=== PATIENT | female | born 1985 | race Caucasian/White ===

== ENCOUNTER 2016-08-14 07:06 | Emergency (ER) | payer OTHER ==
[~2016-08-14] VITALS: Ht 167.6 cm; Wt 108.9 kg
[~2016-08-14 07:06] MED LIST: ALBU6.7H INH; GEMF600T PO; GLUCTES27 TOP; GLUCTES27 XX; LEVEMIR SQ; [UNRECOGNIZED DRUG - CODE] PO
[2016-08-14 07:16] VITALS: BP 156/101; PULSE 81; RESP 18; TEMP 98.1; O2SAT 99
--- NOTE | 2016-08-14 07:44 | PD ---
HPI Chief Complaint: Foreign Body Time Seen by Provider: 07:42 Travel History International Travel<30 days: No Contact w/Intl Traveler<30days: No Traveled to known affect area: No History of Present Illness HPI 30-year-old female presents with feeling a bug in her right ear. She poured and hydrogen peroxide and the movements stopped and she's not sure if she got it out as her ear is still irritating her. This occurred at 4:30 this morning. She denies other concurrent complaints. PFSH Past Medical History Asthma: Yes Depression: Yes High Cholesterol: Yes Diabetes: Yes (IDDM STATES NONCOMPLIANT WITH INSULIN) Patient Takes Glucophage: No Diminished Hearing: No Gastrointestinal Disorders: Yes (GASTROPARESIS) Hypertension: Yes Musculoskeletal: Yes (NEUROPATHY) Neurologic: Yes (RECURRENT DIZZINESS) Immunizations Current: Yes Migraines: Yes Tetanus Vaccination: > 5 Years Influenza Vaccination: No ?: Unknown LMP: "Few months ago" : 4 Para: 0 Miscarriage: 3 Past Surgical History Endocrine Surgery: Yes (LYMPH NODE REMOVED WHEN PT WAS INFANT) Tonsillectomy: Yes (2007) Social History Alcohol Use: No Tobacco Use: No Substance Use: No Allergies-Medications (Allergen,Severity, Reaction): Coded Allergies: Benadryl (Verified Allergy, Severe, Swelling, 08/14/16) Cipro (Verified Allergy, Severe, Rash, 08/14/16) Compazine (Verified Allergy, Severe, Swelling, 08/14/16) Keflex (Verified Allergy, Severe, Rash, 08/14/16) Latex (Verified Allergy, Severe, 08/14/16) Metoprolol (Verified Allergy, Severe, Swelling, 08/14/16) Penicillin (Verified Allergy, Severe, Hives, 08/14/16) Sulfa (Verified Allergy, Severe, TURNS RED ALL OVER, 08/14/16) Bactrim (Verified Adverse Reaction, Intermediate, 08/14/16) Reported Meds & Prescriptions Reported Meds & Active Scripts Active Gemfibrozil 600 Mg Tab 600 Mg PO BIDAC Take 30 minutes prior to breakfast and dinner. Levemir Inj (Insulin Detemir) 1,000 unit/ 10 ML Vial 135 Units SQ BIDAC 30 Days Do not mix with any other Insulin. Reported Proventil Hfa 6.7 GM Inh (Albuterol Sulfate) 90 Mcg/Act Aer 2 Puff INH Q6H PRN Review of Systems Except as stated in HPI: all other systems reviewed are Neg Physical Exam Narrative General: No apparent distress, well appearing ENT: mmm, external auditory canals are normal. Bilateral TM clear, no foreign body or lacerations noted Neck: Neck is supple, no meningeal signs, trachea is midline Cardiovascular: Regular rate and rhythm Lungs: No increased respiratory effort noted Neuro: Awake, motor and sensation grossly intact, normal speech Data Data Last Documented VS Vital Signs Date Time Temp Pulse Resp B/P Pulse Ox O2 Delivery O2 Flow Rate FiO2 08/14/16 07:16 98.1 81 18 156/101 99 Room Air MDM Medical Decision Making Medical Screen Exam Complete: Yes Emergency Medical Condition: Yes Medical Record Reviewed: Yes (past history confirm) Differential Diagnosis Laceration, foreign body, foreign body sensation Narrative Course Patient without foreign body or laceration. Advised Tylenol as needed for discomfort and to follow with primary. Patient happy with plan Diagnosis Primary Impression: Foreign body sensation in right ear canal Patient Instructions: General Instructions Additional Instructions: return as needed, tylenol as needed for pain, follow with primary Med/Other Pt SpecificInfo: No Change to Meds Disposition: 01 DISCHARGE HOME Condition: Stable Barbi Lebron MD Aug 14, 2016 07:44
[2016-10-15] MEDS ORDERED: [UNRECOGNIZED DRUG - CODE] (11:45)
[2016-10-15] MEDS ORDERED: LEVEMIR SQ ×2 (11:57→12:13)
[2016-10-15] MEDS ORDERED: insulin syringes TOPICAL (12:13)
[2016-12-03] MEDS ORDERED: NOVOLOGP2 SQ (12:06)
== END 2016-08-14 07:50 | disposition home or self-care (01) ==
LOC: PHED 07:06
DX: H93.8X1 Other specified disorders of right ear (principal)
CPT/HCPCS: 99282

== ENCOUNTER → 2016-11-27 | Outpatient (CLI) | payer OTHER ==
[~2016-11-27] MED LIST changes: -GLUCTES27 TOP; -GLUCTES27 XX; +NOVOLOGP2 SQ; +[UNRECOGNIZED DRUG - CODE]; -[UNRECOGNIZED DRUG - CODE] PO; +insulin syringes TOPICAL
[2016-11-27 13:04] LABS: AUTOMATED NEUTROPHIL # 3.8 TH/MM3 (1.8-7.7); BASOPHIL % 0.7 % (0.0-2.0); EOSINOPHIL # 0.2 TH/MM3 (0-0.4); EOSINOPHIL % 3.3 % (0.0-4.0); HEMATOCRIT 47.2 % (35.0-46.0); HEMO FLAGS DIFF FINAL; LYMPH % 33.9 % (9.0-44.0); LYMPHOCYTE # 2.3 TH/MM3 (1.0-4.8); MEAN CELL VOLUME 82.6 FL (80.0-100.0); MEAN CORPUSCULAR HEMOGLOBIN 26.9 PG (27.0-34.0); MEAN CORPUSCULAR HGB CONC 32.6 % (32.0-36.0); MONO % 6.6 % (0.0-8.0); NEUT % 55.5 % (16.0-70.0); PLATELET COUNT 306 TH/MM3 (150-450); RED BLOOD COUNT 5.72 MIL/MM3 (4.00-5.30); RED CELL DISTRIBUTION WIDTH 13.1 % (11.6-17.2); WHITE BLOOD COUNT 6.8 TH/MM3 (4.0-11.0)
[2016-11-27 13:27] LABS: ANION GAP 8 MEQ/L (5-15); AST (GOT) 55 U/L (15-37); BICARBONATE 25.8 MEQ/L (21.0-32.0); BLOOD UREA NITROGEN 13 MG/DL (7-18); CHLORIDE 101 MEQ/L (98-107); GLOMERULAR FILTRATION RATE 71 ML/MIN (>89); GLUCOSE,FASTING 244 MG/DL (74-99); POTASSIUM 4.5 MEQ/L (3.5-5.1); SODIUM (NA) 135 MEQ/L (136-145)
[2016-11-27 13:38] LABS: ALKALINE PHOSPHATASE 67 U/L (45-117); ALT (GPT) 82 U/L (10-53); HDL CHOLESTEROL 29.1 MG/DL (40.0-60.0); LDL CHOLESTEROL 166 MG/DL (0-99); TOTAL BILIRUBIN ADULT 0.9 MG/DL (0.2-1.0)
[2016-11-27 16:29] LABS: HEMOGLOBIN A1a 1.1 %; HEMOGLOBIN A1b 1.4 %; HEMOGLOBIN Ao 78.7 %; HEMOGLOBIN F 1.3 %; HEMOGLOBIN LA1C 2.9 %; HEMOGLOBIN P3 4.7 %
== END ==
LOC: CLAB 12:37
PROVIDERS: ATTEND Family Medicine
DX: E78.5 Hyperlipidemia, unspecified (principal); E11.65 Type 2 diabetes mellitus with hyperglycemia; F99 Mental disorder, not otherwise specified; E66.9 Obesity, unspecified; Z91.19 Patient's noncompliance with other medical treatment and regimen
CPT/HCPCS: 36415; 80053; 80061; 83036; 84443; 85025

== ENCOUNTER → 2016-12-03 | Outpatient (CLI) | payer OTHER | LOC: CLAB 12:29 | PROVIDERS: ATTEND Family Medicine | DX: R74.8 Abnormal levels of other serum enzymes (principal) | CPT/HCPCS: 36415; 80074 ==

== ENCOUNTER 2017-11-14 19:39 | Emergency (ER) | END 2017-11-14 22:37 | disposition home or self-care (01) | DX: S16.1XXA Strain of muscle, fascia and tendon at neck level, initial encounter (principal); R51 Headache; V49.88XA Car occupant (driver) (passenger) injured in other specified transport accidents, initial encounter; E11.9 Type 2 diabetes mellitus without complications; I10 Essential (primary) hypertension; E78.00 Pure hypercholesterolemia, unspecified; J45.909 Unspecified asthma, uncomplicated; Z79.4 Long term (current) use of insulin; Z87.39 Personal history of other diseases of the musculoskeletal system and connective tissue; Z86.69 Personal history of other diseases of the nervous system and sense organs; Z86.59 Personal history of other mental and behavioral disorders | CPT/HCPCS: 72125; 99283; L0150 ==